=== PATIENT | female | born 1960 | race Caucasian/White ===

== ENCOUNTER 2024-08-23 07:54 | Day surgery (SDC) | payer BC ==
[~2024-08-23 07:54] MED LIST: Sodium Chloride 0.9% 10 ML Syringe FLUSH PRN
[2024-08-23] MEDS ORDERED: Propofol 200 MG/20 ML SDV IV ONE (07:55)
[2024-08-23] MEDS ORDERED: Midazolam 1 MG/ML 2 ML SDV IV ONE (07:55)
[2024-08-23] MEDS ORDERED: Lidocaine 2% 100 MG/5 ML Syringe IVPUSH ONE (07:55)
[2024-08-23] MEDS: Lactated Ringers 1,000 ML IV SCH (08:26)
[2024-08-23] MEDS: Simethicone Drops 40 MG/0.6 ML 30 ML Bottle ONE (09:42)
[2024-08-23 11:33] VITALS: BP 134/64; PULSE 57
== END 2024-08-23 11:27 | disposition home or self-care (01) ==
LOC: FB.SDS 07:54
PROVIDERS: ATTEND Surgery
DX: Z12.11 Encounter for screening for malignant neoplasm of colon (principal); D12.3 Benign neoplasm of transverse colon; I48.0 Paroxysmal atrial fibrillation; E78.00 Pure hypercholesterolemia, unspecified; F32.1 Major depressive disorder, single episode, moderate; M81.0 Age-related osteoporosis without current pathological fracture; F41.1 Generalized anxiety disorder; Z79.01 Long term (current) use of anticoagulants; Z79.899 Other long term (current) drug therapy; Z88.8 Allergy status to other drugs, medicaments and biological substances
CPT/HCPCS: 00811; 45380; 88305; A9270; J2250; J2704; J7120